=== PATIENT | male | born 1935 | race Caucasian/White ===

== ENCOUNTER 2019-02-05 02:26 | Inpatient (IN) ==
[2019-01-30 08:19] LABS: URINE SOURCE CLEAN CATCH
[2019-01-30 08:30] LABS: BASO# 0.04 X1000 (0.0-0.2); BASO% 0.6 % (0.0-0.8); EOS% 9.6 % (0.0-10.0); HEMATOCRIT 43.7 % (42.0-52.0); HEMOGLOBIN 14.7 g/dL (14.0-18.0); LYMPH% 33.4 % (20.5-51.1); MCH 31.1 PG (27-31); MCHC 33.6 g/dL (33-37); MCV 92.4 FL (81-99); MONO# 0.47 X1000 (0.11-0.59); MONO% 7.5 % (1.7-9.3); MPV 9.2 FL (7.4-10.4); NEUT# 3.07 X1000 (1.4-6.5); NEUT% 48.9 % (42.2-75.2); PLT 257 X1000 (130-400); RBC 4.73 XMIL (4.7-6.1); RDW 13.1 % (11.5-14.5); WBC 6.28 X1000 (4.8-10.8)
[2019-01-30 08:32] LABS: BILIRUBIN URINE NEGATIVE (NEGATIVE); BLOOD URINE NEGATIVE (NEGATIVE); COLOR STRAW; GLUCOSE URINE NEGATIVE (NEGATIVE); KETONE URINE NEGATIVE (NEGATIVE); LEUKOCYTES URINE NEGATIVE (NEGATIVE); NITRITE URINE NEGATIVE (NEGATIVE); PH URINE 6.5; PROTEIN URINE NEGATIVE (NEGATIVE); SP GRAVITY URINE 1.005; TURBIDITY URINE CLEAR (CLEAR); UROBILINOGEN URINE NORMAL (NORMAL)
[2019-01-30 08:35] LABS: INR 0.92; PROTIME 12.5 Seconds (11.0-16.0); UR EPITHELIAL CELLS <10 /HPF (<10); URINE BACTERIA NEGATIVE /HPF; URINE RBC <10 /HPF (<10); URINE WBC <10 /HPF (<10)
[2019-01-30 08:36] LABS: PTT 29.9 Seconds (22.3-41.8)
[2019-01-30 08:38] LABS: HEMOGLOBIN A1C 5.6 % (4.8-6.0)
[2019-01-30 08:43] LABS: CALCIUM 9.3 mg/dL (8.8-10.2); CREATININE 1.2 mg/dL (0.7-1.2); POTASSIUM 4.3 mmol/L (3.5-5.1)
--- NOTE | 2019-01-30 09:07 | EKG Report ---
Test Performed on : 01/30/2019 08:10:10 AM Test Reason : PAT Blood Pressure : / mmHG Vent. Rate : 050 BPM Atrial Rate : 050 BPM P-R Int : 192 ms QRS Dur : 094 ms QT Int : 426 ms P-R-T Axes : 078 092 082 degrees QTc Int : 388 ms Sinus bradycardia. with sinus arrhythmia. Rightward axis Borderline ECG When compared with ECG of 03-MAY-2017 07:56, No significant change was found Confirmed by Ector Liu MD ([id number]) on 01/31/2019 7:42:36 PM
[2019-02-05] MEDS ORDERED: REGLAN ONE (06:00)
[2019-02-05] MEDS ORDERED: COLACE ONE (06:00)
[2019-02-05] MEDS ORDERED: CELEBREX ONE (06:00)
[2019-02-05] MEDS ORDERED: LYRICA ONE (06:00)
[2019-02-05] MEDS ORDERED: PEPCID ONE (06:00)
[2019-02-05] MEDS ORDERED: LR 1,000 ML ONE (06:01)
[2019-02-05] MEDS ORDERED: KEFZOL 1 GM/D5W 2 GM/100 ML IVPB ONE (06:01)
[2019-02-05] MEDS ORDERED: XYLOCAINE-MPF 2% ONE (06:30)
[2019-02-05] MEDS ORDERED: FENTANYL ONE (06:30)
[2019-02-05] MEDS ORDERED: DIPRIVAN 1% ONE (06:30)
[2019-02-05] MEDS ORDERED: QUELICIN (DOSE) ONE (06:33)
[2019-02-05] MEDS ORDERED: ROBINUL ONE ×2 (06:56→08:53)
[2019-02-05] MEDS ORDERED: NEO-SYNEPHRINE ONE (06:58)
[2019-02-05] MEDS ORDERED: ZOFRAN ONE (07:00)
[2019-02-05] MEDS ORDERED: DURAMORPH ONE (07:17)
[2019-02-05] MEDS ORDERED: TORADOL ONE (07:17)
[2019-02-05] MEDS ORDERED: MARCAINE 0.25% PF ONE (07:17)
[2019-02-05] MEDS ORDERED: EXPAREL 1.3% ONE (07:17)
[2019-02-05] MEDS ORDERED: CYKLOKAPRON 1,000 MG/NS 1,000 MG/100 ML IVPB ONE (07:17)
[2019-02-05] MEDS ORDERED: SODIUM CHLORIDE 0.9% ONE (07:17)
[2019-02-05] MEDS ORDERED: SODIUM CHLORIDE 0.9% 10 ML ONE (07:25)
[2019-02-05] MEDS ORDERED: NORCURON ONE (07:25)
[2019-02-05] MEDS ORDERED: EPHEDRINE ONE (08:02)
[2019-02-05] MEDS ORDERED: DILAUDID ONE (08:20)
[2019-02-05] MEDS ORDERED: DECADRON ONE (08:34)
[2019-02-05 08:39] LABS: URINE SOURCE CATH
[2019-02-05 08:42] LABS: BILIRUBIN URINE NEGATIVE (NEGATIVE); BLOOD URINE TRACE (NEGATIVE); COLOR YELLOW; GLUCOSE URINE NEGATIVE (NEGATIVE); KETONE URINE NEGATIVE (NEGATIVE); LEUKOCYTES URINE NEGATIVE (NEGATIVE); NITRITE URINE NEGATIVE (NEGATIVE); PH URINE 5.5; PROTEIN URINE NEGATIVE (NEGATIVE); SP GRAVITY URINE 1.017; TURBIDITY URINE CLEAR (CLEAR); UROBILINOGEN URINE NORMAL (NORMAL)
[2019-02-05 08:44] LABS: UR EPITHELIAL CELLS <10 /HPF (<10); URINE BACTERIA NEGATIVE /HPF; URINE RBC <10 /HPF (<10); URINE WBC <10 /HPF (<10)
[2019-02-05] MEDS ORDERED: NEOSTIGMINE ONE (08:53)
[2019-02-05] MEDS ORDERED: OFIRMEV 1000 MG/ISOTONIC SOLN 1,000 MG/100 ML BOTTLE ONE (08:53)
[2019-02-05] MEDS ORDERED: NS 1,000 ML ONE (09:55)
--- NOTE | 2019-02-05 09:56 | OPERATIVE NOTE ---
PROCEDURE DATE : 02/05/2019 PREOPERATIVE DIAGNOSIS: Degenerative joint disease left hip. POSTOPERATIVE DIAGNOSIS: Degenerative joint disease left hip. PROCEDURE: Left anterior hip replacement. SURGEON: Tiffanie Carr MD ANESTHESIA: General. COMPLICATION: None. PAINTINGS CONSERVATOR: SHARRI Mota Ms. Pate was necessary for proper retraction and manipulation of the hip during the case. PROCEDURE IN DETAIL: An 83-year-old male presents for a left anterior hip replacement. Risks, benefits, and no guarantees were discussed and the patient is willing to proceed. He was taken to the operating room and satisfactory anesthesia obtained. He was transferred to the [place] table and the left hip was prepped and draped in the usual sterile fashion. A time-out was taken to confirm operative site, procedure, and patient. An anterior approach to the left hip was undertaken with an incision starting 1 cm distal and lateral to the anterior superior iliac spine and carried roughly 10 cm over the fascia of the tensor fascia melvin. Dissection was carried down through the skin and subcutaneous fat to the fascia of the tensor fascia melvin. Blunt dissection along the inner membrane was undertaken down to the anterior hip capsule. Cobra retractors were placed over the superior and inferior aspect of the femoral neck. A capsulotomy incision was made to expose the femoral neck and hip joint. The C arm was used to shoot an AP pelvis to determine leg lengths prior to osteotomy of the femoral neck. An osteotomy over the femoral neck was then made roughly 8 mm above the lesser trochanter. The femoral head was removed. A very small Cobra retractor was carefully placed directly on the anterior acetabular bone to protect the femoral nerve and anterior neurovascular structures. Sequential reaming up to a 57/58 reamer was undertaken. Thinning of the anterior cortex was noted and decision was made to stop at a 58 reamer. A [employer] 58 outer diameter Gription cup was then impacted into the acetabulum in roughly 45 degrees of abduction and 10 degrees of anteversion. This had secure press-fit fixation. A 25 length screw was placed in the 12 o'clock position of the cup. This had good bone purchase. A 0 degree, 38 mm inner diameter polyethylene bearing was then impacted into the cup. The bearing cup interface and cup bone interface was checked and noted to be stable. All traction was released off the leg and the hip extended and externally rotated to facilitate broaching of the proximal femur. Using the Depuy Actis broach system, sequential broaching was undertaken up to an 8 stem. This had good rotational and axial stability. The standard neck geometry with a +5 neck length, 36 head ball, revealed good range of motion, scientologist of leg length, and stability. The trial stem was removed and an Actis size 8 standard collared stem impacted into the proximal femur with secure axial and rotational stability. A 36 mm +5 neck length ceramic head was impacted onto this. The hip was reduced. The C arm was used to verify accurate component placement as well as scientologist of leg length. Stability was assessed by flexing the hip and internally rotating it without any significant posterior instability extending the hip and externally rotating it without any anterior instability. The wound was copiously irrigated with irrigant. A Hemovac drain was placed and brought out through the lateral thigh. The joint capsule and soft tissues were injected with Exparel for pain management. The fascia of the tensor was closed with a running V-Loc suture and the subcutaneous with 2-0 Vicryl and the skin with sterile dressings. The patient was then recovered from anesthesia and transferred to the recovery room in stable condition. No intraoperative complications were noted. Instrument count and sponge count was correct at the time of closure. cc: Pradip Carr MD
[2019-02-05] MEDS ORDERED: MORPHINE IV PRN ×3 (10:00)
[2019-02-05] MEDS ORDERED: OXY IR PO PRN (10:00)
[2019-02-05] MEDS ORDERED: ZOFRAN IV PRN (10:00)
[2019-02-05] MEDS ORDERED: ZOFRAN ODT PO PRN (10:00)
[2019-02-05] MEDS: OXY IR PO PRN (11:42)
[2019-02-05] MEDS: NS 1,000 ML IV SCH ×2 (11:44→21:07)
[2019-02-05] MEDS: TYLENOL PO SCH ×3 (11:45→22:16)
[2019-02-05] MEDS: ULTRAM PO SCH ×3 (11:45→22:16)
[2019-02-05] MEDS ORDERED: CYKLOKAPRON 1,000 MG/NS 1,000 MG/100 ML IVPB IV ONE (14:00)
[2019-02-05] MEDS: KEFZOL 2 GM/D5W 2 GM/50 ML IVPB IV SCH ×2 (15:59→22:17)
--- NOTE | 2019-02-05 16:54 | ORTHOPAEDICS PROGRESS NOTE ---
DATE: 02/05/2019 SUBJECTIVE: Mr. Valente is seen status post hip replacement. He is awake and alert at the present time. His bandage is clean and dry. He is motor and sensory intact with good femoral and sciatic nerve function. Medically stable. PLAN: Will plan on mobilizing him and transferring home when he is doing well with therapy. cc: Pradip Carr MD
[2019-02-05] MEDS ORDERED: ZOCOR PO SCH (21:00)
[2019-02-05] MEDS: CELEBREX PO SCH (21:07)
[2019-02-05] MEDS: COLACE PO SCH (21:07)
[2019-02-06] MEDS: OXY IR PO PRN ×2 (02:10→14:52)
[2019-02-06] MEDS: ULTRAM PO SCH ×2 (06:50→11:50)
[2019-02-06] MEDS: TYLENOL PO SCH ×2 (06:51→11:50)
[2019-02-06 06:55] LABS: HEMOGLOBIN 11.1 g/dL (14.0-18.0)
[2019-02-06 07:10] LABS: CALCIUM 8.1 mg/dL (8.8-10.2); CREATININE 1.2 mg/dL (0.7-1.2); POTASSIUM 4.4 mmol/L (3.5-5.1)
[2019-02-06] MEDS: NS 1,000 ML IV SCH (07:34)
[2019-02-06] MEDS: CELEBREX PO SCH (08:29)
[2019-02-06] MEDS: COLACE PO SCH (08:29)
[2019-02-06] MEDS ORDERED: ASPIRIN PO SCH (09:00)
[2019-02-06] MEDS ORDERED: PEPCID PO SCH (09:00)
[2019-02-06] MEDS ORDERED: PERIDEX MT SCH (09:00)
[2019-02-06 12:30] VITALS: BP 130/69
== END 2019-02-06 17:14 | disposition home health service (06) | DRG 470 ==
LOC: SURHOLD 02:26 → 4N 07:37
PROVIDERS: ADMIT Orthopaedic Surgery Adult Reconstructive Orthopaedic Surgery; ATTEND Orthopaedic Surgery Adult Reconstructive Orthopaedic Surgery